=== PATIENT | male | born 1985 | race Caucasian/White ===

== ENCOUNTER 2017-04-13 10:07 | Day surgery (SDC) | payer OTHER ==
[~2017-04-13] VITALS: Ht 185.4 cm; Wt 86.7 kg
[2017-04-13 11:13] VITALS: BP 127/86; PULSE 57; TEMP 98.3
[2017-04-13] MEDS ORDERED: IBU800 M1 PO (11:14)
[2017-04-13 13:00] VITALS: BP 115/63; PULSE 52; TEMP 97.6
[2017-04-13 13:15] VITALS: BP 111/83; PULSE 62
== END 2017-04-13 13:46 | disposition home or self-care (01) ==
LOC: SDCO 10:07
DX: K60.1 Chronic anal fissure (principal); K62.89 Other specified diseases of anus and rectum
CPT/HCPCS: J2250; J2405; J3010; J7030